=== PATIENT | male | born 1960 | race Caucasian/White ===

== ENCOUNTER 2020-08-04 09:14 | Inpatient (IN) | payer OTHER ==
[2020-07-31 17:14] VITALS: BMI 34.4
[2020-08-04] MEDS ORDERED: TRANEXAMIC ACID 1000 MG/10 ML VIAL ONE ×2 (11:10→14:03)
[2020-08-04] MEDS ORDERED: ceFAZolin SODIUM 1 GM VIAL ONE (11:10)
[2020-08-04] MEDS ORDERED: DEXAMETHASONE SOD PHOSPHATE 4 MG/1 ML VIAL ONE (11:10)
[2020-08-04] MEDS ORDERED: ONDANSETRON 4 MG/2 ML VIAL ONE (11:10)
[2020-08-04] MEDS ORDERED: MIDAZOLAM HCL 2 MG/2 ML SINGLE DOSE VIAL ONE ×3 (11:56→14:36)
[2020-08-04] MEDS ORDERED: BUPIVACAINE HCL 50 ML ONE (11:57)
[2020-08-04] MEDS ORDERED: BUPIVACAINE LIPOSOME/PF (EXPAREL) 266 MG/20 ML VIAL ONE (11:57)
[2020-08-04] MEDS ORDERED: SODIUM CHLORIDE 0.9% P/F 10 ML VIAL IJ ONE (11:57)
[2020-08-04] MEDS ORDERED: LIDOCAINE HCL/PF 2% SDV 5ML VIAL ONE (12:32)
[2020-08-04] MEDS ORDERED: SUCCINYLCHOLINE CHLORIDE 200 MG/10 ML SYRINGE ONE (12:32)
[2020-08-04] MEDS ORDERED: VANCOMYCIN 1,000 MG VIAL (RESTRICTED TO ID ONLY) ONE (12:37)
[2020-08-04] MEDS ORDERED: BUPIVICAINE 0.25%/MORPH PF/KETOROLAC - 51ML DISP.SYRINGE IA ONE ×2 (13:24→14:43)
[2020-08-04 14:16] LABS: HIV INTERPRETATION NEGATIVE (NEGATIVE)
[2020-08-04] MEDS ORDERED: VANCOMYCIN 1,000 MG VIAL (RESTRICTED TO ID ONLY) IVPB ONE (14:42)
[2020-08-04] MEDS ORDERED: MAG HYDROX/AL HYDROX/SIMETH 30 ML UNIT-DOSE CUP PO PRN (15:10)
[2020-08-04] MEDS ORDERED: ONDANSETRON 4 MG/2 ML VIAL IVPUSH PRN ×2 (15:10→15:30)
[2020-08-04] MEDS ORDERED: LACTATED RINGERS SOLUTION 1,000 ML IV SCH (15:15)
[2020-08-04] MEDS ORDERED: oxyCODONE HCL 5 MG TABLET PO PRN (15:30)
[2020-08-04] MEDS ORDERED: PROMETHAZINE HCL 25 MG/1 ML VIAL IVPUSH PRN (15:30)
[2020-08-04] MEDS: ACETAMINOPHEN 325 MG TABLET (FP) PO SCH ×3 (15:58→21:05)
[2020-08-04] MEDS: ATORVASTATIN CA 20 MG TABLET (FP) PO SCH (21:05)
[2020-08-04] MEDS: SENNOSIDES/DOCUSATE COMBO (SENNA PLUS) TABLET (UD) PO SCH (21:05)
[2020-08-04] MEDS: oxyCODONE HCL 10 MG SUSTAINED ACTING TABLET PO SCH (21:05)
[2020-08-04] MEDS: GABAPENTIN 300 MG CAPSULE PO SCH (21:05)
[2020-08-04] MEDS: CEFAZOLIN 2 GM/D5W 2 GM/50 ML ML IVPB SCH (21:05)
[2020-08-05] MEDS: ACETAMINOPHEN 325 MG TABLET (FP) PO SCH ×4 (03:40→21:07)
[2020-08-05] MEDS: CEFAZOLIN 2 GM/D5W 2 GM/50 ML ML IVPB SCH ×2 (04:30→15:14)
[2020-08-05] MEDS: INSULIN SLIDING SCALE (NOVOLOG) 1 VIAL SQ SCH ×5 (06:00→22:24)
[2020-08-05] MEDS ORDERED: REFRIGERATED ANITBIOTICS ONE (06:55)
[2020-08-05 08:29] LABS: CALCIUM 8.3 mg/dl (8.5-10); CREATININE 0.6 mg/dl (0.55-1.3); MAGNESIUM 1.6 mg/dL (1.8-2.4); POTASSIUM 3.7 mmol/L (3.5-5.1)
[2020-08-05 08:34] LABS: HEMATOCRIT 35.4 % (35.4-49); HEMOGLOBIN 11.6 GM/dl (11.7-16.9); MCH 28.1 pg (25.7-33.7); MCHC 32.9 g/dl (32.0-35.9); MEAN CELL VOLUME 85.5 fl (80-96); MEAN PLT VOLUME 7.8 fl (7.5-11.1); PLATELET COUNT 265 K/MM3 (134-434); RBC 4.14 M/mm3 (4.00-5.60); RDW 12.8 % (11.9-15.9); WHITE BLOOD COUNT 6.7 K/mm3 (4.0-10.8)
[2020-08-05] MEDS: ASPIRIN 325 MG TABLET PO SCH ×2 (09:17→21:07)
[2020-08-05] MEDS: GABAPENTIN 300 MG CAPSULE PO SCH ×2 (09:17→21:07)
[2020-08-05] MEDS: MULTIVITAMINS (DAILY MVI) TABLET (FP) PO SCH (09:18)
[2020-08-05] MEDS: PANTOPRAZOLE 40 MG TABLET PO SCH (09:18)
[2020-08-05] MEDS: SENNOSIDES/DOCUSATE COMBO (SENNA PLUS) TABLET (UD) PO SCH ×2 (09:18→21:07)
[2020-08-05] MEDS: oxyCODONE HCL 10 MG SUSTAINED ACTING TABLET PO SCH ×2 (09:19→21:07)
[2020-08-05] MEDS: oxyCODONE HCL 5 MG TABLET PO PRN ×2 (09:24→21:06)
[2020-08-05] MEDS ORDERED: MAGNESIUM SULF 50% (8.12 MEQ/2 ML-1 GM VIAL) IVPB ONE (10:25)
[2020-08-05] MEDS ORDERED: MAGNESIUM SULFATE IN WATER 2 GM/50 ML IVPB IVPB ONE (10:30)
[2020-08-05] MEDS: ATORVASTATIN CA 20 MG TABLET (FP) PO SCH (21:07)
[2020-08-06] MEDS: ACETAMINOPHEN 325 MG TABLET (FP) PO SCH ×2 (03:30→09:12)
[2020-08-06 06:18] VITALS: BP 121/63; PULSE 98; TEMP 99.9
[2020-08-06] MEDS: INSULIN SLIDING SCALE (NOVOLOG) 1 VIAL SQ SCH (06:55)
[2020-08-06 08:18] LABS: HEMATOCRIT 34.4 % (35.4-49); HEMOGLOBIN 11.2 GM/dl (11.7-16.9); MCH 27.9 pg (25.7-33.7); MCHC 32.6 g/dl (32.0-35.9); MEAN CELL VOLUME 85.5 fl (80-96); MEAN PLT VOLUME 7.9 fl (7.5-11.1); PLATELET COUNT 249 K/MM3 (134-434); RBC 4.02 M/mm3 (4.00-5.60); RDW 12.9 % (11.9-15.9); WHITE BLOOD COUNT 7.2 K/mm3 (4.0-10.8)
[2020-08-06] MEDS: ASPIRIN 325 MG TABLET PO SCH (09:10)
[2020-08-06] MEDS: GABAPENTIN 300 MG CAPSULE PO SCH (09:11)
[2020-08-06] MEDS: PANTOPRAZOLE 40 MG TABLET PO SCH (09:11)
[2020-08-06] MEDS: MULTIVITAMINS (DAILY MVI) TABLET (FP) PO SCH (09:11)
[2020-08-06] MEDS: SENNOSIDES/DOCUSATE COMBO (SENNA PLUS) TABLET (UD) PO SCH (09:11)
[2020-08-06] MEDS: oxyCODONE HCL 10 MG SUSTAINED ACTING TABLET PO SCH (09:12)
[2020-08-06] MEDS ORDERED: PT OWN MED DRAWER 7, Y5N ONE (11:00)
== END 2020-08-06 12:25 | disposition home or self-care (01) | DRG 470 ==
LOC: FM/S 09:14
PROVIDERS: ADMIT Orthopaedic Surgery Sports Medicine; ATTEND Nurse Practitioner Acute Care
PROC: 8E0Y0CZ Robotic Assisted Procedure of Lower Extremity, Open Approach (ICD-10-PCS; 2020-08-04)
PROC: 0SRC0J9 Replacement of Right Knee Joint with Synthetic Substitute, Cemented, Open Approach (ICD-10-PCS; principal; 2020-08-04 12:56)
DX: M17.11 Unilateral primary osteoarthritis, right knee (principal); E11.9 Type 2 diabetes mellitus without complications; Z79.84 Long term (current) use of oral hypoglycemic drugs
CPT/HCPCS: 36415; 73560-TC-RT-FY; 80048; 82962; 83735; 85027; 86803; 87389; 88304-TC; 88311-TC; 94760; 97010-GP; 97116-GP; 97163-GP

== ENCOUNTER 2022-01-03 09:53 | Inpatient (IN) | payer OTHER ==
[2022-01-03 11:37] LABS: BASO % 0.7 % (0-2.0); HEMATOCRIT 45.5 % (35.4-49); HEMOGLOBIN 15.4 GM/dL (11.7-16.9); LYMPH % 22.4 % (8-40); MCH 29.2 pg (25.7-33.7); MCHC 33.8 g/dl (32.0-35.9); MEAN CELL VOLUME 86.4 fl (80-96); MEAN PLT VOLUME 8.3 fl (7.5-11.1); MONO % 15.3 % (3.8-10.2); NEUT % 47.6 % (42.8-82.8); PLATELET COUNT 165 10^3/uL (134-434); RBC 5.27 M/mm3 (4.00-5.60); RDW 14.8 % (11.9-15.9); WHITE BLOOD COUNT 4.2 K/mm3 (4.0-10.0)
[2022-01-03 11:38] LABS: PH,URINE 6.5 (5.0-8.0); URINE APPEARANCE CLEAR; URINE BILIRUBIN NEGATIVE (NEGATIVE); URINE COLOR YELLOW; URINE GLUCOSE (UA) 3+ (NEGATIVE); URINE KETONE NEGATIVE (NEGATIVE); URINE LEUK ESTERASE NEGATIVE (NEGATIVE); URINE NITRITE NEGATIVE (NEGATIVE); URINE PROTEIN NEGATIVE (NEGATIVE); URINE UROBILINOGEN 0.2 mg/dL (0.2-1.0)
[2022-01-03] MEDS ORDERED: VANCOMYCIN 1 GM in D5W (PRE-DOCKED) 1,000 MG/250 ML IVPB ONE (11:46)
[2022-01-03 12:02] LABS: ALBUMIN 4.2 g/dl (3.4-5.0); BLOOD UREA NITROGEN 10.6 mg/dL (7-18); CALCIUM 9.2 mg/dL (8.5-10.1)
[2022-01-03] MEDS ORDERED: VANCOMYCIN 1 GRAM (PRE-DOCKED) 1,000 MG/250 ML BAG IVPB ONE (12:02)
[2022-01-03 12:06] LABS: CREATININE 0.5 mg/dL (0.55-1.3)
[2022-01-03 12:07] LABS: BILIRUBIN,TOTAL 0.4 mg/dL (0.2-1); TOT PROT 7.6 g/dl (6.4-8.2)
[2022-01-03] MEDS ORDERED: ACETAMINOPHEN 325 MG TABLET (FP) PO PRN (18:29)
[2022-01-03] MEDS ORDERED: diphenhydrAMINE HCL 50 MG CAPSULE PO PRN (18:30)
[2022-01-03] MEDS ORDERED: LOSARTAN POTASSIUM 50 MG TABLET PO PRN (18:40)
[2022-01-03] MEDS ORDERED: ENOXAPARIN NA (PORCINE) 40 MG/0.4 ML DISP.SYRIN SQ ONE (20:43)
[2022-01-03] MEDS ORDERED: PANTOPRAZOLE 40 MG TABLET PO ONE (20:43)
[2022-01-03] MEDS: PANTOPRAZOLE 40 MG TABLET PO SCH (20:50)
[2022-01-03] MEDS: ENOXAPARIN NA (PORCINE) 40 MG/0.4 ML DISP.SYRIN SQ SCH (20:51)
[2022-01-03] MEDS ORDERED: diphenhydrAMINE HCL 25 MG CAPSULE (FP) PO ONE (21:14)
[2022-01-03] MEDS ORDERED: ACYCLOVIR 800 MG TABLET PO SCH (22:00)
[2022-01-03] MEDS ORDERED: ATORVASTATIN CA 40 MG TABLET (FP) ONE (22:42)
[2022-01-03] MEDS: ACYCLOVIR 800 MG TABLET PO SCH (22:57)
[2022-01-03] MEDS: ATORVASTATIN CA 40 MG TABLET (FP) PO SCH (22:57)
[2022-01-04 02:30] VITALS: BMI 35.6
[2022-01-04] MEDS: ACYCLOVIR 800 MG TABLET PO SCH (06:05)
[2022-01-04] MEDS ORDERED: INSULIN SLIDING SCALE (NOVOLOG) 1 VIAL SQ SCH (07:00)
[2022-01-04 08:34] LABS: BASO % 0.4 % (0-2.0); EOS % 16.8 % (0-4.5); HEMATOCRIT 42.4 % (35.4-49); HEMOGLOBIN 13.9 GM/dL (11.7-16.9); LYMPH % 24.7 % (8-40); MCH 28.5 pg (25.7-33.7); MCHC 32.9 g/dl (32.0-35.9); MEAN CELL VOLUME 86.5 fl (80-96); MEAN PLT VOLUME 8.7 fl (7.5-11.1); MONO % 10.4 % (3.8-10.2); NEUT % 47.7 % (42.8-82.8); PLATELET COUNT 168 10^3/uL (134-434); RDW 14.6 % (11.9-15.9); WHITE BLOOD COUNT 4.4 K/mm3 (4.0-10.0)
[2022-01-04] MEDS: PANTOPRAZOLE 40 MG TABLET PO SCH (10:06)
[2022-01-04] MEDS: ENOXAPARIN NA (PORCINE) 40 MG/0.4 ML DISP.SYRIN SQ SCH (10:07)
[2022-01-04] MEDS: valACYclovir HCL 500 MG TABLET (FP) PO SCH ×2 (13:28→22:58)
[2022-01-04] MEDS: TRIAMCINOLONE ACET 0.1% CREAM 15 GM TUBE TP SCH ×2 (14:41→22:59)
[2022-01-04] MEDS: CLINDAMYCIN HCL 150 MG CAPSULE (FP) PO SCH ×2 (14:41→22:59)
[2022-01-04] MEDS: predniSONE 20 MG TABLET (UD) PO SCH (15:58)
[2022-01-04 16:08] LABS: SARS-CoV-2 NAA Detected (Not Detected)
[2022-01-04] MEDS: INSULIN SLIDING SCALE (NOVOLOG) 1 VIAL SQ SCH (17:35)
[2022-01-04] MEDS: ATORVASTATIN CA 40 MG TABLET (FP) PO SCH (22:59)
[2022-01-05] MEDS: CLINDAMYCIN HCL 150 MG CAPSULE (FP) PO SCH (06:06)
[2022-01-05] MEDS: valACYclovir HCL 500 MG TABLET (FP) PO SCH (06:06)
[2022-01-05] MEDS: INSULIN SLIDING SCALE (NOVOLOG) 1 VIAL SQ SCH (06:14)
[2022-01-05] MEDS ORDERED: INSULIN (NOVOLOG) ASPART 100 UNITS/ML 10ML VIAL ONE (07:40)
[2022-01-05 09:52] LABS: BASO % 0.4 % (0-2.0); EOS % 3.3 % (0-4.5); HEMATOCRIT 39.7 % (35.4-49); HEMOGLOBIN 13.5 GM/dL (11.7-16.9); LYMPH % 25.7 % (8-40); MCH 29.3 pg (25.7-33.7); MEAN PLT VOLUME 8.5 fl (7.5-11.1); MONO % 10.5 % (3.8-10.2); NEUT % 60.1 % (42.8-82.8); PLATELET COUNT 158 10^3/uL (134-434); RBC 4.62 M/mm3 (4.00-5.60); RDW 14.6 % (11.9-15.9); WHITE BLOOD COUNT 3.8 K/mm3 (4.0-10.0)
[2022-01-05 10:22] LABS: ERYTHROCYTE SEDIMENTATION RATE 10 mm/hr (0-20)
[2022-01-05] MEDS: predniSONE 20 MG TABLET (UD) PO SCH (10:42)
[2022-01-05] MEDS: PANTOPRAZOLE 40 MG TABLET PO SCH (10:42)
[2022-01-05] MEDS: ENOXAPARIN NA (PORCINE) 40 MG/0.4 ML DISP.SYRIN SQ SCH (10:42)
[2022-01-05] MEDS: TRIAMCINOLONE ACET 0.1% CREAM 15 GM TUBE TP SCH (10:42)
[2022-01-05 11:27] VITALS: BP 114/82; PULSE 75; TEMP 98.2
[2022-01-06] MEDS ORDERED: LOSARTAN POTASSIUM 50 MG TABLET PO SCH (10:00)
== END 2022-01-05 14:06 | disposition home or self-care (01) | DRG 606 ==
LOC: JER 09:53 → JERBED 13:34 → J8W 01-04 02:37
PROVIDERS: ADMIT Internal Medicine; ATTEND Internal Medicine
DX: L30.9 Dermatitis, unspecified (principal); U07.1 COVID-19; B00.9 Herpesviral infection, unspecified; E11.9 Type 2 diabetes mellitus without complications; R74.01 Elevation of levels of liver transaminase levels; I10 Essential (primary) hypertension; E78.5 Hyperlipidemia, unspecified
CPT/HCPCS: 36415; 71046-TC-FY; 80053; 81003; 82962; 85025; 85651; 86140; 87070; 87077; 87081; 87086; 87205; 93005; 93010; 99285-25; C9803-CS; U0003; U0005

== ENCOUNTER 2022-04-09 20:02 | Emergency (ER) | payer OTHER ==
[2022-04-09 20:22] VITALS: BP 155/93; PULSE 97; RESP 20; TEMP 98.2; BMI 34.9
[2022-04-09] MEDS ORDERED: IBUPROFEN 600 MG TABLET (FP) PO ONE ×2 (21:47→21:57)
[2022-04-09] MEDS ORDERED: METHOCARBAMOL 500 MG TABLET PO ONE (21:47)
[2022-04-09] MEDS ORDERED: METHOCARBAMOL 500 MG TABLET ONE (21:57)
== END 2022-04-09 22:01 | disposition home or self-care (01) ==
LOC: JERFT 20:02
DX: M54.2 Cervicalgia (principal); M25.512 Pain in left shoulder; V87.7XXA Person injured in collision between other specified motor vehicles (traffic), initial encounter; Y92.9 Unspecified place or not applicable
CPT/HCPCS: 99283-25

== ENCOUNTER 2024-10-25 14:35 | Inpatient (IN) | payer OTHER ==
[2024-10-25] MEDS: SODIUM CHLORIDE 0.9% 500 ML INFUS.BAG IV ONE (16:45)
[2024-10-25 17:01] LABS: BASO % 0.6 % (0-2.0); EOS % 1.8 % (0-4.5); HEMATOCRIT 44.2 % (35.4-49); HEMOGLOBIN 15.3 GM/dL (11.7-16.9); LYMPH % 17.3 % (8-40); MCHC 34.7 g/dl (32.0-35.9); MEAN CELL VOLUME 89.3 fl (80-96); MEAN PLT VOLUME 8.4 fl (7.5-11.1); MONO % 8.2 % (3.8-10.2); NEUT % 72.1 % (42.8-82.8); PLATELET COUNT 191 10^3/uL (134-434); RBC 4.95 M/mm3 (4.00-5.60); RDW 14.1 % (11.9-15.9); WHITE BLOOD COUNT 6.2 K/mm3 (4.0-10.0)
[2024-10-25 17:26] LABS: POTASSIUM 4.9 mmol/L (3.5-5.1)
[2024-10-25 17:29] LABS: ALBUMIN 4.2 g/dl (3.4-5.0); BLOOD UREA NITROGEN 10.2 mg/dL (7-18); CALCIUM 9.7 mg/dL (8.5-10.1); MAGNESIUM 1.9 mg/dL (1.8-2.4)
[2024-10-25 17:32] LABS: PHOSPHOROUS 4.3 mg/dL (2.5-4.9)
[2024-10-25 17:33] LABS: CREATININE 0.6 mg/dL (0.55-1.3)
[2024-10-25 17:34] LABS: BILIRUBIN,TOTAL 0.7 mg/dL (0.2-1); TOT PROT 7.5 g/dl (6.4-8.2)
[2024-10-25 20:09] LABS: INR 1.11 (0.83-1.09); PROTHROMBIN TIME (PATIENT) 12.2 SEC (9.7-13.0)
[2024-10-25 20:12] LABS: ACTIVATED PTT 30.1 SECONDS (25.2-36.5)
[2024-10-25 21:33] VITALS: BMI 33.3
[2024-10-25] MEDS ORDERED: LABETALOL HCL 20 MG/4 ML VIAL IVPUSH PRN (21:40)
[2024-10-25] MEDS ORDERED: hydrALAZINE HCL 20 MG/ML VIAL IVPUSH PRN (21:42)
[2024-10-25] MEDS: CHLORHEXIDINE GLUCONATE 4% CLEANSER FOR DECOLONIZATION TP SCH (22:33)
[2024-10-25] MEDS: INSULIN ASPART SLIDING SCALE (NOVOLOG) 1 VIAL SQ SCH (22:33)
[2024-10-25] MEDS: MUPIROCIN 2% TOPICAL OINTMENT FOR DECOLONIZATION NS SCH (22:33)
[2024-10-26] MEDS ORDERED: PIPERACILLIN/TAZOB 2.25 GM 2.25 GM in DEXTROSE 5%-WATER - 50 ML IVPB SCH (02:00)
[2024-10-26 07:26] LABS: INR 1.15 (0.83-1.09); PROTHROMBIN TIME (PATIENT) 12.7 SEC (9.7-13.0)
[2024-10-26 07:29] LABS: ACTIVATED PTT 30.5 SECONDS (25.2-36.5)
[2024-10-26 07:36] LABS: POTASSIUM 4.5 mmol/L (3.5-5.1)
[2024-10-26 07:37] LABS: CALCIUM 9.4 mg/dL (8.5-10.1)
[2024-10-26 07:38] LABS: ALBUMIN 3.8 g/dl (3.4-5.0); BLOOD UREA NITROGEN 10.1 mg/dL (7-18)
[2024-10-26 07:41] LABS: BASO % 0.5 % (0-2.0); CREATININE 0.6 mg/dL (0.55-1.3); EOS % 3.3 % (0-4.5); HEMATOCRIT 42.6 % (35.4-49); LYMPH % 15.9 % (8-40); MCH 31.5 pg (25.7-33.7); MCHC 35.2 g/dl (32.0-35.9); MEAN CELL VOLUME 89.5 fl (80-96); MEAN PLT VOLUME 8.3 fl (7.5-11.1); MONO % 10.2 % (3.8-10.2); NEUT % 70.1 % (42.8-82.8); PLATELET COUNT 180 10^3/uL (134-434); RBC 4.76 M/mm3 (4.00-5.60); RDW 13.9 % (11.9-15.9); WHITE BLOOD COUNT 5.4 K/mm3 (4.0-10.0)
[2024-10-26 07:43] LABS: BILIRUBIN,TOTAL 0.6 mg/dL (0.2-1); TOT PROT 6.7 g/dl (6.4-8.2)
[2024-10-26] MEDS ORDERED: THROMBIN (BOVINE) 20,000 UNIT VIAL TP ONE (11:15)
[2024-10-26] MEDS ORDERED: GENTAMICIN SO4 80 MG/2 ML VIAL ONE (11:15)
[2024-10-26] MEDS ORDERED: BACITRACIN ZINC 15 GM TUBE TOPICAL OINTMENT ONE (11:15)
[2024-10-26] MEDS ORDERED: BUPIVACAINE HCL/PF 0.5% (5MG/ML) 10 ML VIAL ONE (11:16)
[2024-10-26] MEDS ORDERED: LIDOCAINE 1%/EPI 1:100000 (20 ML MULTI DOSE VIAL) ONE ×2 (11:16→13:19)
[2024-10-26] MEDS ORDERED: MIDAZOLAM HCL 2 MG/2 ML SINGLE DOSE VIAL ONE (12:58)
[2024-10-26] MEDS: ceFAZolin 2 GRAM PREMIX BAG IVPB ONE (13:15)
[2024-10-26] MEDS: VANCOMYCIN 1,000 MG VIAL (RESTRICTED TO ID ONLY) IVPB ONE (13:15)
[2024-10-26] MEDS: LIDOCAINE 1%/EPI 1:100000 (50 ML MULTI DOSE VIAL) NR ONE (13:19)
[2024-10-26] MEDS ORDERED: PROPOFOL 60 ML ONE (13:24)
[2024-10-26] MEDS: GENTAMICIN SO4 80 MG/2 ML VIAL IVPB ONE (13:39)
[2024-10-26] MEDS: THROMBIN (BOVINE) 20,000 UNIT VIAL TP ONE (13:40)
[2024-10-26] MEDS ORDERED: ONDANSETRON 4 MG/2 ML VIAL IVPUSH PRN ×3 (14:33→14:46)
[2024-10-26] MEDS ORDERED: LABETALOL HCL 20 MG/4 ML VIAL IVPUSH PRN (14:46)
[2024-10-26] MEDS ORDERED: ACETAMINOPHEN WITH CODEINE 300MG/30MG TABLET PO PRN (14:46)
[2024-10-26] MEDS ORDERED: D5-NS + 20 MEQ KCL - 20 MEQ/1,000 ML INFUS.BAG IV SCH (14:46)
[2024-10-26] MEDS ORDERED: CODEINE SO4 30 MG TABLET PO PRN ×2 (14:46→21:31)
[2024-10-26] MEDS: DEXAMETHASONE SOD PHOSPHATE 4 MG/1 ML VIAL IVPUSH SCH (15:25)
[2024-10-26] MEDS: LACTATED RINGERS SOLUTION 1,000 ML IV SCH ×2 (15:26→18:44)
[2024-10-26] MEDS: hydrALAZINE HCL 20 MG/ML VIAL IVPUSH PRN (17:07)
[2024-10-26] MEDS: INSULIN ASPART SLIDING SCALE (NOVOLOG) 1 VIAL SQ SCH (17:29)
[2024-10-26] MEDS ORDERED: FOSPHENYTOIN SODIUM 100 MG/2 ML VIAL IVPB SCH (18:00)
[2024-10-26] MEDS: CEFAZOLIN 1 GM in DEXTROSE 5%-WATER - 50 ML IVPB SCH (18:42)
[2024-10-26] MEDS: CEFAZOLIN 1 GM/D5W 1 GM/50 ML BAG IVPB SCH (18:44)
[2024-10-26] MEDS: ALBUMIN HUMAN 25% 12.5 GM/50 ML VIAL IV SCH (18:45)
[2024-10-26] MEDS: FOSPHENYTOIN SODIUM 100 MG in SODIUM CHLORIDE 100 ML IVPB SCH (18:53)
[2024-10-26] MEDS: ACETAMINOPHEN 1000 MG/100 ML BAG IVPB SCH (21:43)
[2024-10-26] MEDS: CHLORHEXIDINE GLUCONATE 4% CLEANSER FOR DECOLONIZATION TP SCH (21:45)
[2024-10-26] MEDS: MUPIROCIN 2% TOPICAL OINTMENT FOR DECOLONIZATION NS SCH (22:00)
[2024-10-26] MEDS ORDERED: MUPIROCIN 2% TOPICAL OINTMENT FOR DECOLONIZATION NS SCH (22:00)
[2024-10-27 07:11] LABS: HEMATOCRIT 42.8 % (35.4-49); HEMOGLOBIN 14.2 GM/dL (11.7-16.9); MCH 30.6 pg (25.7-33.7); MCHC 33.1 g/dl (32.0-35.9); MEAN CELL VOLUME 92.4 fl (80-96); MEAN PLT VOLUME 8.1 fl (7.5-11.1); PLATELET COUNT 189 10^3/uL (134-434); RBC 4.64 M/mm3 (4.00-5.60); WHITE BLOOD COUNT 9.1 K/mm3 (4.0-10.0)
[2024-10-27 07:28] LABS: POTASSIUM 4.1 mmol/L (3.5-5.1)
[2024-10-27 07:35] LABS: BLOOD UREA NITROGEN 12.4 mg/dL (7-18); CALCIUM 8.8 mg/dL (8.5-10.1)
[2024-10-27 07:36] LABS: ALBUMIN 3.5 g/dl (3.4-5.0)
[2024-10-27 07:38] LABS: CREATININE 0.5 mg/dL (0.55-1.3)
[2024-10-27 07:39] LABS: BILIRUBIN,TOTAL 0.6 mg/dL (0.2-1); TOT PROT 6.6 g/dl (6.4-8.2)
[2024-10-27 09:44] LABS: ANISOCYTOSIS 0; MACROCYTOSIS 0
[2024-10-27] MEDS: PANTOPRAZOLE SODIUM 40 MG VIAL IVPUSH SCH (10:00)
[2024-10-28 07:24] LABS: HEMATOCRIT 39.8 % (35.4-49); HEMOGLOBIN 13.3 GM/dL (11.7-16.9); LYMPH % 4.8 % (8-40); MCH 30.7 pg (25.7-33.7); MCHC 33.5 g/dl (32.0-35.9); MEAN CELL VOLUME 91.7 fl (80-96); MEAN PLT VOLUME 8.5 fl (7.5-11.1); MONO % 5.2 % (3.8-10.2); PLATELET COUNT 187 10^3/uL (134-434); RBC 4.35 M/mm3 (4.00-5.60); RDW 14.2 % (11.9-15.9); WHITE BLOOD COUNT 7.8 K/mm3 (4.0-10.0)
[2024-10-28 08:02] LABS: BLOOD UREA NITROGEN 13.1 mg/dL (7-18); CALCIUM 8.1 mg/dL (8.5-10.1); MAGNESIUM 1.9 mg/dL (1.8-2.4); POTASSIUM 4.3 mmol/L (3.5-5.1)
[2024-10-28 08:03] LABS: CREATININE 0.4 mg/dL (0.55-1.3); PHOSPHOROUS 2.9 mg/dL (2.5-4.9)
[2024-10-29 05:18] VITALS: TEMP 98.4
[2024-10-29 07:33] LABS: POTASSIUM 4.5 mmol/L (3.5-5.1)
[2024-10-29 07:38] LABS: ALBUMIN 3.3 g/dl (3.4-5.0); CALCIUM 8.7 mg/dL (8.5-10.1)
[2024-10-29 07:39] LABS: BASO % 0.1 % (0-2.0); EOS % 0.1 % (0-4.5); HEMATOCRIT 40.4 % (35.4-49); HEMOGLOBIN 13.7 GM/dL (11.7-16.9); LYMPH % 9.9 % (8-40); MAGNESIUM 1.8 mg/dL (1.8-2.4); MCHC 33.8 g/dl (32.0-35.9); MEAN CELL VOLUME 91.8 fl (80-96); MEAN PLT VOLUME 8.4 fl (7.5-11.1); MONO % 8.9 % (3.8-10.2); PLATELET COUNT 188 10^3/uL (134-434); RDW 13.9 % (11.9-15.9); WHITE BLOOD COUNT 6.5 K/mm3 (4.0-10.0)
[2024-10-29 07:41] LABS: CREATININE 0.5 mg/dL (0.55-1.3)
[2024-10-29 07:42] LABS: PHOSPHOROUS 2.8 mg/dL (2.5-4.9)
[2024-10-29 07:43] LABS: BILIRUBIN,TOTAL 0.3 mg/dL (0.2-1); TOT PROT 5.9 g/dl (6.4-8.2)
[2024-10-29 14:47] VITALS: BP 122/74; PULSE 72; RESP 18
== END 2024-10-29 18:22 | disposition home or self-care (01) | DRG 27 ==
LOC: JER 14:35 → JERBED 18:49 → JICU 20:37
PROVIDERS: ADMIT Internal Medicine Pulmonary Disease; ATTEND Internal Medicine Pulmonary Disease
PROC: 00C40ZZ Extirpation of Matter from Intracranial Subdural Space, Open Approach (ICD-10-PCS; 2024-10-26)
PROC: 009400Z Drainage of Intracranial Subdural Space with Drainage Device, Open Approach (ICD-10-PCS; principal; 2024-10-26 12:00)
DX: S06.5XAA Traumatic subdural hemorrhage with loss of consciousness status unknown, initial encounter (principal); E11.9 Type 2 diabetes mellitus without complications; I10 Essential (primary) hypertension; E66.9 Obesity, unspecified; Z68.33 Body mass index [BMI] 33.0-33.9, adult; W19.XXXA Unspecified fall, initial encounter; Y93.9 Activity, unspecified; Y92.89 Other specified places as the place of occurrence of the external cause; Y99.9 Unspecified external cause status
CPT/HCPCS: 0241U-QW; 36415; 70450-TC; 71046-TC-FY; 80048; 80053; 82310; 82962; 83036; 83735; 84100; 84484; 85025; 85610; 85730; 86850; 86900; 86901; 93005; 93010; 94760; 97116-GP; 97162-GP; 99285-25; C1713; C1889; J0131

== ENCOUNTER 2025-04-12 14:37 | Emergency (ER) | payer OTHER ==
[2025-04-12 14:48] VITALS: BP 135/82; PULSE 78; RESP 19; TEMP 98.4; BMI 33.3
== END 2025-04-12 17:19 | disposition home or self-care (01) ==
LOC: JER 14:37
DX: B00.89 Other herpesviral infection (principal); R21 Rash and other nonspecific skin eruption
CPT/HCPCS: 99283-25